=== PATIENT | female | born 1950 | race Caucasian/White ===

== ENCOUNTER 2024-03-28 09:46 | Outpatient (RCR) | payer MEDICARE, OTHER, SELFPAY | END 2024-04-21 23:59 | disposition home or self-care (01) | LOC: SCTC 09:46 | PROVIDERS: PCP Family Medicine; Referring Provider Family Medicine; Visit Provider Nurse Practitioner Family | DX: Z08 Encounter for follow-up examination after completed treatment for malignant neoplasm (principal); Z85.038 Personal history of other malignant neoplasm of large intestine; Z90.49 Acquired absence of other specified parts of digestive tract; E04.1 Nontoxic single thyroid nodule | CPT/HCPCS: 99212; G0463 ==

== ENCOUNTER → 2024-07-11 | Outpatient (CLI) | payer MEDICARE, OTHER, SELFPAY ==
[2024-07-11 12:27] LABS: T4 (Thyroxine) 7.2 mcg/dL (4.5-10.9)
[2024-07-11 12:35] LABS: Thyroid Stimulating Hormone 0.27 uIU/mL (0.55-4.78)
[2024-07-17 06:30] LABS: T3,Total* 98 ng/dL (76-181)
== END | disposition home or self-care (01) ==
LOC: COPL 10:50
PROVIDERS: PCP Family Medicine; Referring Provider Family Medicine; Visit Provider Family Medicine
DX: E21.0 Primary hyperparathyroidism (principal)
CPT/HCPCS: 36415; 84436; 84443; 84480

== ENCOUNTER → 2024-09-19 | Outpatient (CLI) | payer MEDICARE, OTHER, SELFPAY ==
[2024-09-19 10:01] LABS: Basophils # (Auto) 0.1 Thou/mm3 (0.0-0.2); Basophils % (Auto) 1 % (0-2.5); Eosinophils # (Auto) 0.2 Thou/mm3 (0.0-0.5); Eosinophils % (Auto) 3 % (0-10); Hematocrit 38.1 % (36.0-46.0); Hemoglobin 12.4 g/dL (12.0-16.0); Immature Granulocytes % (Auto) 0 % (0-0); Immature Granulocytes Auto 0.01 Thou/mm3 (0.00-0.00); Lymphocytes # (Auto) 0.7 Thou/mm3 (1.0-4.8); Lymphocytes % (Auto) 15 % (10-50); Mean Corpuscular HGB Conc 32.5 g/dl (31.0-37.0); Mean Corpuscular Hemoglobin 30.5 pg (25.0-35.0); Mean Corpuscular Volume 94 fL (80-100); Monocytes # (Auto) 0.4 Thou/mm3 (0.0-0.8); Monocytes % (Auto) 9 % (0-12); Neutrophils # (Auto) 3.5 Thou/mm3 (1.8-7.7); Neutrophils % (Auto) 73 % (37-80); Nucleated Red Blood Cell % 0 /100 WBC (0); Platelet Count 231 Thou/mm3 (140-440); RDW Standard Deviation 46.3 fL (36.4-46.3); Red Blood Count 4.07 Miln/mm3 (4.00-5.20); White Blood Count 4.8 Thou/mm3 (3.6-11.0)
[2024-09-19 10:23] LABS: Alanine Aminotransferase 23 U/L (10-49); Albumin, Serum 3.7 gm/dL (3.4-4.8); Albumin/Globulin Ratio 1.2 (1.2-2.2); Alkaline Phosphatase 62 U/L (46-116); Anion Gap 5 (7-16); Aspartate Amino Transferase 38 U/L (0-34); BUN/Creatinine Ratio 26 Ratio (12-20); Bilirubin,Total 0.8 mg/dL (0.3-1.2); Blood Urea Nitrogen 18 mg/dL (9-23); Calcium (Corrected) 9.2 mg/dL (8.5-10.1); Carbon Dioxide 32.7 mMol/L (20.0-31.0); Carcinoembryonic Antigen 1.6 ng/mL (0.0-5.0); Chloride 104 mMol/L (98-107); Creatinine (Component) 0.7 mg/dL (0.6-1.3); Globulin 3.1 gm/dL (2.3-3.5); Glucose 100 mg/dL (74-106); Osmolality,Calculated 285 (275-295); Potassium 4.2 mMol/L (3.4-5.1); Sodium 142 mMol/L (136-145); Total Protein 6.8 gm/dL (5.7-8.2); eGFR > 60 See Note
== END | disposition home or self-care (01) ==
LOC: SCTO 08:55
PROVIDERS: PCP Family Medicine; Referring Provider Nurse Practitioner Family; Visit Provider Nurse Practitioner Family
DX: C18.7 Malignant neoplasm of sigmoid colon (principal)
CPT/HCPCS: 36415; 80053; 82378; 85025

== ENCOUNTER 2024-09-25 10:51 | Outpatient (RCR) | payer MEDICARE, OTHER, SELFPAY ==
--- NOTE | 2024-09-25 11:30 | CTCFLWUP_ITS ---
Patient: TRENTON LEIGH : 1950 Page 2 of 2 FOLLOW UP NOTE DATE OF SERVICE: 09/25/2024 NAME: TRENTON LEIGH ACCOUNT: [id number] : 1950 AGE: 74 INTERVAL HISTORY: Visit summary Trenton, a female with history of stage 3 colon cancer (2019) and thyroid syndrome status post thyroidectomy, presented for oncology follow-up. She reported no cancer-related symptoms with normal labs (Hgb 12.4, normal WBC, CEA 1.6) and negative colonoscopy last year. Deepika genetic blood test was ordered for early cancer recurrence detection. Plan includes continuing colonoscopies every 3 years, endocrinology follow-up for thyroid management, and oncology follow-up in 6 months. History of Present Illness Trenton Leigh is a patient with a history of stage 3 colon cancer diagnosed in 2019, who completed chemotherapy in October 2020. She also has a history of thyroid syndrome and thyroidectomy. The patient is presenting for a follow-up visit. Ms. Leigh reports no current symptoms related to her history of colon cancer. She denies experiencing blood in her stools, changes in stool caliber or color, chronic constipation, changes in appetite, or weight loss. The patient states that she recently had a colonoscopy with Dr. Christie last year, which was negative. She mentions that she has been having colonoscopies every 3 years as recommended by her doctor. The patient's overall health status appears stable, with no reported changes or new concerns since her last visit. She continues to follow up with endocrinology for her thyroid condition. Medical History - Stage 3 colon cancer diagnosed in 2019 - Thyroid syndrome - Thyroidectomy Surgical History - Thyroidectomy for thyroid syndrome - Colon cancer surgery in 2019 (stage 3) Review of Systems Gastrointestinal: Negative for blood in stools, change in caliber of stools, black stools, chronic constipation. Laboratory, Imaging, and Diagnostic Test Results - Date: TueSep 25 2024 - CBC: Hemoglobin 12.4 g/dL (normal), WBC normal (specific value not provided) - CEA: 1.6 (normal) - Colonoscopy (previous year): Negative ONCOLOGY HISTORY: DIAGNOSIS: Stage IIIb (pT4a, PN 1) moderate to poorly differentiated sigmoid colon adenocarcinoma with tumor invading visceral peritoneum and with lymphovascular invasion (11/30/2019) status post a sigmoid colectomy. S/p adjuvant modified FOLFOX completed on 09/08/2020. S/p radiation therapy to the pelvis completed on 11/07/2020. Chronic atrial fibrillation currently being followed by Dr. Ravi History of right hemithyroidectomy for hyperthyroidism in 1998. Left thyroid nodule biopsy benign (08/10/2021), f/u with endocrinology REASON FOR TODAY?S VISIT: This is an office follow-up visit for colon cancer. Malignant neoplasm of sigmoid colon [ICD10] C18.7 DATE OF DIAGNOSIS: 11/30/2019 STAGE/TNM: Stage IIIb (pT4a, PN 1) moderate to poorly differentiated sigmoid colon adenocarcinoma TREATMENT HISTORY: Care?Plan Start?Date Cycle Day Intent mFOLFOX-6?-?5FU?400?+?2400?CIV,?LVR?400,?OXALIplat?85 02/11/2020 1 14 Curative?(adjuvant) HISTORY OF PRESENT ILLNESS: I am seeing the patient for follow-up visit at [facility]. Labs from 03/12/2024 show CEA 1.6, hemoglobin 11.5, MCV 94, thyroglobulin 39.6, TSH 0.19, T4 1.29. Colonoscopy screening done on 08/11/2023 showed mild diverticulosis, recommended repeat colonoscopy 3 years for surveillance. Patient following up with endocrinology for hyperthyroidism, last follow-up was on 02/06/2024, patient has an upcoming appointment with endocrinology. Patient reports she has continued to decline surgery offered by ENT surgeon and medication for her thyroid, her reasoning is that she feels well and prefers to not take any medication. Patient reports good appetite and en ergy levels. Patient denies chest pain abdominal pain weight loss fever night sweats. Patient ambulating well without assistance. HISTORY: Trenton Leigh is a 74-year-old ENG speaking female with history of right hemithyroidectomy in 1998 for hyperthyroidism, atrial fibrillation currently on Xarelto being followed by Dr. Moore has about 8 to 10- year history of low-grade rectal bleeding. Patient thought the rectal bleeding was due to Xarelto as well as hemorrhoids. 10/26/2019: Patient had CBC done which apparently showed a hemoglobin of 6.5. 11/26/2019 patient was seen in the emergency room for anemia. CBC showed her hemoglobin to be 6.8 with an MCV of 67. WBC is 5.8 and platelets are 494,000. She was admitted to the hospital for blood transfusion and further work-up. 11/28/2019: EGD?esophagitis and acute gastritis was noted. 11/29/2019: Colonoscopy?a circumferential mass was noted in the distal sigmoid colon which was causing stricture. 11/30/2019: Patient underwent exploratory laparotomy, sigmoid colectomy with low pelvic colo-proctostomy. 12/27/2019: Radiation oncology consultation by Dr. Templeton. 02/11/2020? 09/08/2020: Patient received 12 cycles of modified FOLFOX 6. 09/29/2020?11/06/2020: Ms. Leigh had 5040 cGy radiation to the pelvis. 01/23/2021: PET CT scan? 05/19/2021: CEA 1.5. 08/10/2021: Left thyroid nodule biopsy? 09/21/2021: CEA 1.2. 01/26/2022: CEA 1.5. 09/16/2022: CT scan of the chest abdomen and pelvis with IV contrast 03/14/2023: Thyroglobulin 70.0, TSH 0.30, T4 1.07 08/11/2023: Colonoscopy 03/12/2024: CEA 1.6, thyroglobulin 39.6, TSH 0.19, T4 is 1.29, hemoglobin 11.5, MCV 94. 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 Coreg - 6.25 mg 1 tab Twice a Day 2. furosemide - 20 mg 1 tab Daily 3. Lipitor - 10 mg 1 tab Daily 4. [place] - 7.5-325 mg 0.5 tab Every day before sleep 5. Prilosec - 1 Daily 6. Xarelto - 10 mg 1 tab Daily Medications Last Reconciled by Griselda Ramirez MA on 09/25/2024 ALLERGIES: No Known Drug Allergies REVIEW OF SYSTEMS: A complete 14-point review of systems was performed and is negative except as noted in interval history. PHYSICAL EXAMINATION: VITAL SIGNS: PAIN: 0 - No pain ECOG Performance Status: 0 - Asymptomatic and fully active GENERAL APPEARANCE: Appears well, in no apparent distress, appropriately interactive. HEENT: Normocephalic, no temporal wasting, normal conjunctiva, no scleral icterus, normal hearing, lips without lesions, neck normal range of motion. CARDIOVASCULAR: Not assessed. PULMONARY: Normal respiratory effort, no respiratory distress or use of accessory muscles, speaking in full sentences, no tachypnea. EXTREMITIES: No pedal edema or cyanosis. SKIN: Normal skin appearance. NEUROLOGIC: Alert and oriented x4. PSHYCHIATRIC: Appropriate affect, mood normal, behavior normal, intact thought and speech. LABORATORY DATA: I have personally reviewed and interpreted each of the patient?s relevant lab tests, abnormal findings are below: Date 09/26/23 09/19/24 ??WHITE?BLOOD?COUNT?(Thou/mm3) ? 4.8 ??RED?BLOOD?COUNT?(Miln/mm3) ? 4.07 ??HEMOGLOBIN?(gm/dl) ? 12.4 ??HEMATOCRIT?(%) ? 38.1 ??PLATELET?COUNT?(Thou/mm3) ? 231 ??NEUTROPHILS?%,?AUTO?(%) ? 73 ??LYMPH?%,?AUTO?(%) ? 15 ??NEUTROPHILS,?AUTO?(Thou/mm3) ? 3.5 ??GLUCOSE,RANDOM?(mg/dL) 91 100 ??BLOOD?UREA?NITROGEN?(mg/dL) 8?L 18 ??CREATININE?(mg/dL) 0.70 0.70 ??SODIUM?(mmol/L) 138 142 ??POTASSIUM?(mmol/L) 4.5 4.2 ??CHLORIDE?(mmol/L) 104 104 ??CrCl?(CandG)?(ml/min) 53.58 53.82 ??AST/SGOT?(Unit/L) 45?H 38?H ??ALT/SGPT?(Unit/L) 33 23 ??ALKALINE?PHOSPHATASE?(Unit/L) 71 62 ??BILIRUBIN,?TOTAL?(mg/dL) 0.8 0.8 ??PROTEIN?TOTAL?(gm/dl) 7.1 6.8 ??ALBUMIN,?SERUM?(gm/dl) 4.0 3.7 ??GLOBULIN?(gm/dl) 3.1 3.1 ??ALBUMIN/GLOBULIN?RATIO 1.3 1.2 ??CALCIUM,?SERUM?(mg/dL) 9.5 9.0 ??CALCIUM?SERUM?(CORRECTED)?(mg/dL) 9.5 9.2 ??CEA?(O*)?(ng/ml) ? 1.6 ASSESSMENT/PLAN: Trenton Leigh, female patient with a history of stage 3 colon cancer diagnosed in 2019, status post chemotherapy completed in October 2020, presenting for follow-up. History of Stage 3 Colon Cancer Assessment: Patient was diagnosed with stage 3 colon cancer in 2019 and completed chemotherapy in October 2020. Currently asymptomatic with no reported blood in stools, changes in stool caliber or color, chronic constipation, appetite changes, or weight loss. Recent labs show normal hemoglobin at 12.4, no rmal white cell count, and normal CEA level at 1.6. Last colonoscopy, performed approximately one year ago by Dr. Christie, was negative. Patient has been following up with colonoscopies every 3 years. Plan: - Order Deepika genetic blood test for early detection of colon cancer recurrence - Explain to patient: test is highly accurate, potentially more sensitive than colonoscopy or CT scan - Results will be sent directly to patient's home - If positive, will require follow-up; if negative, continue routine surveillance - Continue follow-up colonoscopies with Dr. Christie as scheduled (currently every 3 years) - Follow up in oncology clinic in 6 months - Patient education provided on symptoms of colon cancer recurrence to monitor for, including changes in stool caliber, shape, or consistency History of Thyroid Disease Assessment: Patient has a history of thyroid syndrome and thyroidectomy. Last thyroid biopsy was negative. Patient is currently followed by endocrinology for this condition. Plan: - Continue follow-up with endocrinology for thyroid condition management ORDERS: Order # Description [id number] Comprehensive Metabolic Panel - 12 + CBC with Auto Diff + CEA [id number] MD Follow Up 6 Month RETURN TO CLINIC: 6 months BILLING AND COMPLIANCE: I reviewed external records from providers outside my specialty as summarized above. I spent a total of 50 minutes on this patient?s care on the day of their visit excluding time spent related to any billed procedures. This time includes time spent with the patient as well as time spent documenting in the medical record, reviewing patients records and tests, obtaining history, placing orders, communicating with other healthcare professionals, counseling the patient, family or caregiver, and/or care coordination for the diagnoses above. Electronically Signed by: Danish Herman MD T: 11:28 AM CC: Emmy,? PCP: Gary Willson Referring: Freeman Mathis This document was completed utilizing speech recognition software. Grammatical errors, random word insertions, pronoun errors, and incomplete sentences are an occasional consequence of this system due to software limitations, ambient noise, and hardware issues. Any formal questions or concerns about the content, text or information contained within the body of this dictation should be directly addressed to the provider for clarification.
== END 2024-10-20 23:59 | disposition home or self-care (01) ==
LOC: SCTC 10:51
PROVIDERS: PCP Family Medicine; Referring Provider Physician Assistant; Visit Provider Internal Medicine Hematology & Oncology
DX: C18.7 Malignant neoplasm of sigmoid colon (principal); E89.0 Postprocedural hypothyroidism; Z92.21 Personal history of antineoplastic chemotherapy; Z92.3 Personal history of irradiation; Z90.49 Acquired absence of other specified parts of digestive tract
CPT/HCPCS: 99212; G0463

== ENCOUNTER → 2024-10-03 | Outpatient (CLI) | payer MEDICARE, OTHER, SELFPAY ==
[2024-10-03 08:46] LABS: Misc Send Out* See Sep Rpt
== END | disposition home or self-care (01) ==
PROVIDERS: PCP Family Medicine; Referring Provider Internal Medicine Hematology & Oncology; Visit Provider Internal Medicine Hematology & Oncology
DX: C18.7 Malignant neoplasm of sigmoid colon (principal)

== ENCOUNTER → 2025-01-17 | Outpatient (CLI) | payer MEDICARE, OTHER, SELFPAY ==
--- NOTE | 2025-01-17 10:01 | XR_ITS ---
Examination: Foot, right, 3 views Technique: AP, oblique, lateral views foot, 3 views Date and time of exam: January 17, 2025 1012 hrs. Indications: Right foot pain beginning 2 weeks ago. Findings: Severe osteopenia. Moderate narrowing first metatarsophalangeal joint No acute fracture 4 mm plantar bony calcaneal spur. Impression: Severe osteopenia No fracture. No dom cortical bone destruction. Moderate narrowing first metatarsophalangeal joint
== END | disposition home or self-care (01) ==
LOC: CDIM 09:41
PROVIDERS: PCP Family Medicine; Referring Provider Family Medicine; Visit Provider Family Medicine
DX: M85.871 Other specified disorders of bone density and structure, right ankle and foot (principal); M25.871 Other specified joint disorders, right ankle and foot
CPT/HCPCS: 73630

== ENCOUNTER → 2025-01-30 | Outpatient (CLI) | payer MEDICARE, OTHER, SELFPAY ==
[2025-01-30 08:23] LABS: Basophils # (Auto) 0.0 Thou/mm3 (0.0-0.2); Basophils % (Auto) 1 % (0-2.5); Eosinophils # (Auto) 0.2 Thou/mm3 (0.0-0.5); Eosinophils % (Auto) 5 % (0-10); Hematocrit 39.1 % (36.0-46.0); Hemoglobin 12.7 g/dL (12.0-16.0); Immature Granulocytes Auto 0.01 Thou/mm3 (0.00-0.00); Lymphocytes # (Auto) 0.9 Thou/mm3 (1.0-4.8); Lymphocytes % (Auto) 26 % (10-50); Mean Corpuscular HGB Conc 32.5 g/dl (31.0-37.0); Mean Corpuscular Hemoglobin 31.2 pg (25.0-35.0); Mean Corpuscular Volume 96 fL (80-100); Monocytes # (Auto) 0.4 Thou/mm3 (0.0-0.8); Monocytes % (Auto) 10 % (0-12); Neutrophils # (Auto) 2.1 Thou/mm3 (1.8-7.7); Neutrophils % (Auto) 58 % (37-80); Nucleated Red Blood Cell # 0.00 Thou/mm3 (0.00-0.00); Nucleated Red Blood Cell % 0 /100 WBC (0); Platelet Count 229 Thou/mm3 (140-440); RDW Standard Deviation 49.9 fL (36.4-46.3); Red Blood Count 4.07 Miln/mm3 (4.00-5.20); White Blood Count 3.5 Thou/mm3 (3.6-11.0)
[2025-01-30 08:46] LABS: Alanine Aminotransferase 15 U/L (10-49); Albumin, Serum 3.7 gm/dL (3.4-4.8); Alkaline Phosphatase 56 U/L (46-116); Anion Gap 7 (7-16); Aspartate Amino Transferase 25 U/L (0-34); BUN/Creatinine Ratio 17 Ratio (12-20); Bilirubin,Direct 0.4 mg/dL (0.0-0.3); Bilirubin,Total 1.6 mg/dL (0.3-1.2); Blood Urea Nitrogen 12 mg/dL (9-23); Calcium 9.2 mg/dL (8.3-10.6); Carbon Dioxide 33.4 mMol/L (20.0-31.0); Cardiac Risk Estimate 2.7 RATIO (3.7-5.6); Chloride 103 mMol/L (98-107); Cholesterol 171 mg/dL (132-200); Creatinine (Component) 0.7 mg/dL (0.6-1.3); Free T4 (Free Thyroxine) 1.63 ng/dL (0.89-1.76); Glucose 89 mg/dL (74-106); HDL Cholesterol 64 mg/dL (40-60); LDL Cholesterol,Calculated 92 mg/dL (0-130); Osmolality,Calculated 283 (275-295); Potassium 4.3 mMol/L (3.4-5.1); Sodium 143 mMol/L (136-145); Thyroid Stimulating Hormone 0.39 uIU/mL (0.55-4.78); Total Protein 6.2 gm/dL (5.7-8.2); Triglycerides 77 mg/dL (30-150); eGFR > 60 See Note
== END | disposition home or self-care (01) ==
LOC: COPL 07:33
PROVIDERS: PCP Family Medicine; Referring Provider Internal Medicine Cardiovascular Disease; Visit Provider Internal Medicine Cardiovascular Disease
DX: I10 Essential (primary) hypertension (principal); E78.5 Hyperlipidemia, unspecified; I48.20 Chronic atrial fibrillation, unspecified
CPT/HCPCS: 36415; 80048; 80061; 80076; 84439; 84443; 85025

== ENCOUNTER → 2025-02-25 | Outpatient (CLI) | payer MEDICARE, OTHER, SELFPAY ==
--- NOTE | 2025-02-25 11:15 | XR_ITS ---
Examination: Thyroid sonography complete TECHNIQUE: Grayscale sonographic images thyroid lobes Date and time: February 25, 2025 1103 hours, comparison 12/31/2023 INDICATIONS: History right thyroidectomy 1998 negative for carcinoma, left thyroid nodules upper pole 18 mm midpole 15 mm lower pole 24 31 mm on thyroid sonogram September 30, 2023 FINDINGS: Absent right thyroid Left thyroid 5.6 cm Upper pole nodule 17 x 14 mm, 11 x 9 mm, 18 x 13 mm Midpole nodule 16 x 13 mm, 20 x 8 mm Lower pole nodule 22 x 18 mm IMPRESSION: Multiple left thyroid nodules as above Midpole nodule 20 x 8 x 8 mm has ill-defined calcifications Consider ultrasound-guided fine-needle aspiration of the vascular lower pole left thyroid nodule 22 x 16 x 18 mm mm
== END | disposition home or self-care (01) ==
LOC: CDIM 10:43
PROVIDERS: PCP Family Medicine; Referring Provider Family Medicine; Visit Provider Family Medicine
DX: E04.2 Nontoxic multinodular goiter (principal)
CPT/HCPCS: 76536

== ENCOUNTER → 2025-03-14 | Outpatient (CLI) | payer MEDICARE, OTHER, SELFPAY ==
[2025-03-14 14:05] LABS: Basophils # (Auto) 0.0 Thou/mm3 (0.0-0.2); Basophils % (Auto) 1 % (0-2.5); Eosinophils # (Auto) 0.2 Thou/mm3 (0.0-0.5); Eosinophils % (Auto) 5 % (0-10); Hematocrit 37.6 % (36.0-46.0); Hemoglobin 12.2 g/dL (12.0-16.0); Immature Granulocytes Auto 0.01 Thou/mm3 (0.00-0.00); Lymphocytes # (Auto) 0.9 Thou/mm3 (1.0-4.8); Lymphocytes % (Auto) 20 % (10-50); Mean Corpuscular HGB Conc 32.4 g/dl (31.0-37.0); Mean Corpuscular Hemoglobin 30.6 pg (25.0-35.0); Mean Corpuscular Volume 94 fL (80-100); Monocytes # (Auto) 0.3 Thou/mm3 (0.0-0.8); Monocytes % (Auto) 7 % (0-12); Neutrophils # (Auto) 3.0 Thou/mm3 (1.8-7.7); Neutrophils % (Auto) 67 % (37-80); Nucleated Red Blood Cell # 0.00 Thou/mm3 (0.00-0.00); Nucleated Red Blood Cell % 0 /100 WBC (0); Platelet Count 235 Thou/mm3 (140-440); RDW Standard Deviation 46.0 fL (36.4-46.3); Red Blood Count 3.99 Miln/mm3 (4.00-5.20); White Blood Count 4.6 Thou/mm3 (3.6-11.0)
[2025-03-14 14:26] LABS: Alanine Aminotransferase 17 U/L (10-49); Albumin, Serum 4.0 gm/dL (3.4-4.8); Albumin/Globulin Ratio 1.5 (1.2-2.2); Alkaline Phosphatase 66 U/L (46-116); Anion Gap 8 (7-16); Aspartate Amino Transferase 34 U/L (0-34); BUN/Creatinine Ratio 13 Ratio (12-20); Bilirubin,Total 0.7 mg/dL (0.3-1.2); Blood Urea Nitrogen 8 mg/dL (9-23); Calcium 9.0 mg/dL (8.3-10.6); Calcium (Corrected) 9.0 mg/dL (8.5-10.1); Carbon Dioxide 31.6 mMol/L (20.0-31.0); Chloride 103 mMol/L (98-107); Creatinine (Component) 0.6 mg/dL (0.6-1.3); Globulin 2.6 gm/dL (2.3-3.5); Glucose 97 mg/dL (74-106); Osmolality,Calculated 283 (275-295); Potassium 4.6 mMol/L (3.4-5.1); Sodium 143 mMol/L (136-145); Total Protein 6.6 gm/dL (5.7-8.2); eGFR > 60 See Note
[2025-03-14 14:27] LABS: Carcinoembryonic Antigen 1.5 ng/mL (0.0-5.0)
== END | disposition home or self-care (01) ==
LOC: SCTO 13:12
PROVIDERS: PCP Family Medicine; Referring Provider Internal Medicine Hematology & Oncology; Visit Provider Internal Medicine Hematology & Oncology
DX: C18.7 Malignant neoplasm of sigmoid colon (principal)
CPT/HCPCS: 36415; 80053; 82378; 85025

== ENCOUNTER 2025-03-28 09:12 | Outpatient (RCR) | payer MEDICARE, OTHER, SELFPAY | END 2025-04-21 23:59 | disposition home or self-care (01) | LOC: SCTC 09:12 | PROVIDERS: PCP Family Medicine; Referring Provider Family Medicine; Visit Provider Nurse Practitioner Family | DX: Z08 Encounter for follow-up examination after completed treatment for malignant neoplasm (principal); Z85.038 Personal history of other malignant neoplasm of large intestine; Z92.21 Personal history of antineoplastic chemotherapy; Z86.39 Personal history of other endocrine, nutritional and metabolic disease | CPT/HCPCS: 99212; G0463 ==